=== PATIENT | male | born 1965 | race Caucasian/White ===

== ENCOUNTER → 2017-03-03 | Day surgery (SDC) | payer OTHER ==
[~2017-03-03] VITALS: Ht 180.3 cm; Wt 112.0 kg
[~2017-03-03] MED LIST: 0.9% Sodium Chloride 1,000 ML IV PRN; ALLO300T2 PO; ATRV10T PO; FEBU40TA PO; FLUC150T3 PO; LISI1TAB9 PO; Sodium Chloride LOK Flush 10 mL Syringe IV PRN; TOLN150S TP; fentaNYL-PF 50 mCg/mL 2 mL Inj IVPUSH PRN
[2017-03-03 15:11] VITALS: BP 132/84; PULSE 77; RESP 16; O2SAT 94
[2017-03-03 16:35] VITALS: BP 108/69; PULSE 76; RESP 16; O2SAT 98
--- NOTE | 2017-03-03 16:35 | PCM.ENDCOL ---
Colonoscopy Date of Service: Mar 03, 2017 Physician Vitor Phillip MD Pre Procedure Diagnosis: Screening Post Procedure Dx & Findings: Polyp hemorrhoids diverticuli lipoma Procedure Colonoscopy PROCEDURE IN DETAIL: Prep adequate Withdrawal time 13 minutes After unremarkable rectal examination the Olympus video colonoscope was inserted patient's anal canal and was advanced to cecum. Landmarks were identified including the ileocecal valve and appendiceal orifice. Scope was withdrawn systematically. Visualized colonic mucosa showed healthy shiny mucosa with normal healthy-appearing vasculature. On the ileocecal valve, there was a 2 cm lipomatous prominence in the ileocecal valve. It was flopping back and forth into the terminal ileum as well as the colon. Positive pillow sign. Biopsy obtained. Biopsy site showed adipose tissue. Terminal ileum was also intubated and advanced about 5 cm. Normal villous structures noted without any ulcer or mass erosion. The descending colon there were 2 polyps. First one was 1 mm in size which was removed completely using cold forceps. The second one was about 2-3 mm in size which was removed completely using cold snare. In the sigmoid colon there a few small diverticuli. In the rectum retroflexion was done which showed hemorrhoids. Anal canal was inspected carefully on the way out and hemorrhoids noted. Impression Lipomatous ileocecal valve. Polyp 2 status post complete removal Diverticuli Hemorrhoids Recommendation Repeat colonoscopy in 5 years Diverticular diet Presedation Assessment Risks and Benefits Informed consent was obtained from the patient after all risks and benefits including but not limited to drug reaction, infection, pain, bleeding, perforation, as well as alternatives were discussed. Patient monitoring Continuous pulse oximetry, cardiac monitoring, blood pressure monitoring, IV access, and oxygen at 2L per nasal cannula. Periprocedural Fentanyl: Fentanyl 125mcg Incrementally Midazolam: Midazolam 7mg Incrementally Complications There were no periprocedural complications identified. Post Procedure Plan Post Procedure Recommendations 1. Restrict activities today. 2. Resume normal activities in the morning. 3. Resume medications. 4. Patient informed of normal post procedure side effects as bloating, drowsiness, blood streaking in the stool. 5. average risk CRCS. If colon polyps come back as: -Hyperplastic- can repeat colonoscopy in 10 years -Tubular adenoma- repeat colonoscopy in 5 years -Tubulovillous/villous adenoma- repeat colonoscopy in 3 years -If any dysplasia- return to clinic as soon as possible 6. Please don't hesitate to call me with any questions. Vitor Phillip MD Mar 03, 2017 16:35
[2017-03-03 16:45] VITALS: BP 101/64; PULSE 77; RESP 16; O2SAT 96
[2017-03-03 16:55] VITALS: BP 126/79; PULSE 78; RESP 16; O2SAT 97
--- NOTE | 2017-03-06 16:17 | PATH ---
SURGICAL PATHOLOGY Attending Physician:Vitor Phillip M.D. CASE STATUS: Signed Out PATIENT NAME: CHONG HAYWARD PID: [id number] : 1965 DATE COLLECTED:03/03/2017 00:00 SPECIMEN: 1: Colon, Biopsy 2: Colon, Polyp CLINICAL HISTORY: 1). ILEOCECAL VALVE LIPOMA BIOPSY 2). DESCENDING POLYP FINAL DIAGNOSIS: 1.ILEOCECAL VALVE LIPOMA, BIOPSY: -FRAGMENT OF ENTERIC MUCOSA WITH NO DIAGNOSTIC ABNORMALITY. -NO EVIDENCE OF ACTIVE INFLAMMATION, DYSPLASIA, AND MALIGNANCY. -UNDERLYING MATURE ADIPOSE TISSUE, CONSISTENT WITH LIPOMA. -ADDITIONAL DEEPER LEVELS EXAMINED. 2.DESCENDING POLYP, BIOPSY: -TUBULAR ADENOMA IN 2 OF 2 FRAGMENTS. ICD10 D12.6 GROSS DESCRIPTION: The specimen is received in two formalin filled containers labeled with the patient's name. 1). The specimen is labeled "ICV lipoma" and consists of a 0.2 x 0.2 x 0.2 CM portion of tissue which is entirely submitted in cassette 1A. 2). The specimen is labeled "descending polyp" and consists of 2 portions of tissue which aggregate to 0.3-0.3 x 0.2 CM. The specimen is entirely submitted in cassette 2A. 03/04/2017CA MICRO DESCRIPTION: See diagnosis. ICD-9 CODES: CPT CODES: 1: 95935 2: 12251 Electronically Signed Out Toni Culver MD [facility], [place] [address] Technical component performed at [facility], [address] [place] [address] Ave[address], [place], [address]
== END | disposition home or self-care (01) ==
LOC: END 07:49
PROVIDERS: ATTEND Internal Medicine
DX: Z12.11 Encounter for screening for malignant neoplasm of colon (principal); D12.4 Benign neoplasm of descending colon; D17.79 Benign lipomatous neoplasm of other sites; K57.30 Diverticulosis of large intestine without perforation or abscess without bleeding; K64.8 Other hemorrhoids; Z83.71 Family history of colonic polyps; I10 Essential (primary) hypertension; E78.5 Hyperlipidemia, unspecified; M10.9 Gout, unspecified; I25.10 Atherosclerotic heart disease of native coronary artery without angina pectoris; Z79.82 Long term (current) use of aspirin
CPT/HCPCS: 45380; 45385; 99153; G0500; J2250; J3010; J7030